=== PATIENT | female | born 1980 | race Caucasian/White ===

== ENCOUNTER 2020-05-25 14:28 | Outpatient (CLI) | payer BC, SELFPAY ==
[2020-05-25 16:02] LABS: Alanine Aminotransferase 17 U/L (4-35); Albumin Level 4.4 g/dL (3.5-5.1); Alkaline Phosphatase 58 U/L (38-126); Anion Gap 6 mmol/L (8-16); Aspartate Amino Transferase 35 U/L (14-36); Bilirubin,Total 0.4 mg/dL (0.2-1.3); Blood Urea Nitrogen 13 mg/dL (7-17); Calcium 8.5 mg/dL (8.4-10.2); Carbon Dioxide 24 mmol/L (22-30); Chloride 107 mmol/L (98-107); Estimated Glomerular Filt Rate > 60; Glucose 82 mg/dL (65-105); Potassium 4.2 mmol/L (3.4-5.0); Sodium 137 mmol/L (137-145)
[2020-05-25 16:39] LABS: Free T4 Free Thyroxine 0.84 ng/mL (0.78-2.19)
== END 2020-05-25 14:29 | disposition home or self-care (01) ==
PROVIDERS: PCP Internal Medicine; Visit Provider Nurse Practitioner
DX: Z79.899 Other long term (current) drug therapy (principal); E03.9 Hypothyroidism, unspecified
CPT/HCPCS: 36415; 80053; 84439; 84443

== ENCOUNTER 2022-12-25 10:13 | Emergency (ER) | payer OTHER, SELFPAY ==
[2022-12-25 10:30] VITALS: BP 145/84; PULSE 140; RESP 18; TEMP 37.6; O2SAT 100
--- NOTE | 2022-12-25 10:40 | ED.URI ---
HPI - URI/Sore Throat General Chief Complaint: Upper Respiratory Infection Stated Complaint: sorethroat,rt ear pain Time Seen by Provider: 12/25/22 10:40 Source: patient Mode of arrival: ambulatory Limitations: no limitations History of Present Illness HPI Narrative: 42-year-old female presents with sore throat, fatigue aches chills, fever for 3-4 days. Denies nausea vomiting diarrhea. No chest pain or shortness of breath. Reports some intermittent congestion and coughing. No known strep exposure. Is taking ibuprofen and Tylenol to treat symptoms. All systems reviewed and negative except as noted above. Related Data Home Medications Medication Instructions Recorded Confirmed Sylnda 1 tab-cap PO DAILY 12/25/22 12/25/22 Allergies Allergy/AdvReac Type Severity Reaction Status Date / Time No Known Allergies Allergy Verified 12/25/22 10:27 Review of Systems Review of Systems: CONSTITUTIONAL: reports fatigue, fever, chills, or sweats. EYES: Denies visual changes, redness, or discharge. ENT: Reports rhinorrhea, congestion, sore throat, or otalgia. CARDIOVASCULAR: Denies chest pain, palpitations, or edema. RESPIRATORY: Denies cough or dyspnea. GASTROINTESTINAL: Denies abdominal pain, nausea, vomiting, or diarrhea. GENITOURINARY: Denies dysuria or hematuria. SKIN: Denies rash or itching. MUSCULOSKELETAL: Denies back pain, joint pain, or myalgia. NEUROLOGIC: Denies headache, numbness, or weakness. PSYCHIATRIC: Denies anxiety or depression. All other systems reviewed are negative, except as documented in HPI. [facility] Past Medical History Medical History (Updated 12/25/22 @ 10:54 by Daniela Arciniega NP) Adult hypothyroidism Anxiety Family History Family History Grandparent Family history of pancreatic cancer, Onset Age: 90 Family history of malignant neoplasm of breast Diabetes mellitus Mother Family history of thyroid disease Social History Social History Smoking status: Never smoker Second hand tobacco smoke exposure: No Alcohol intake: current Alcohol use details: social Substance use: never Substance use type: does not use Comments At time of signature, agree with nursing past medical, surgical, social and family history. There is no relevant family history pertinent to the presenting complaint. Exam Narrative: GENERAL: This is a well-nourished, well-developed patient, in no apparent distress. HEAD: normocephalic, atraumatic. EYES: PERRL. Sclera clear/white. Vision is grossly intact. EARS: External ears normal, auditory canals clear and without drainage, TMs normal without perforation. Hearing grossly intact. NOSE: External nose normal with no obvious nasal discharge, nares without redness, no rhinorrhea. THROAT: Mucous membranes moist, beefy red, swollen. NECK: Neck supple, non-tender with Anterior cervical lymphadenopathy. No masses or thyromegaly. CARDIOVASCULAR: Regular rate and rhythm without murmurs, gallops, or rubs. RESPIRATORY: Clear to auscultation. Breath sounds equal bilaterally. No wheezes, rales, or rhonchi. SKIN: warm, Dry, intact with no suspicious lesions or rash, good texture and turgor. NEURO: awake, alert, and oriented to person, place and time. Course Course Level of Care: Express Care Visit Vital Signs Vital signs: Vital Signs Temperature 37.6 C 12/25/22 10:30 Pulse Rate 140 H 12/25/22 10:30 Respiratory Rate 18 12/25/22 10:30 Blood Pressure 145/84 H 12/25/22 10:30 Pulse Oximetry 100 12/25/22 10:30 Oxygen Delivery Room Air 12/25/22 10:30 Temperature 37.6 C 12/25/22 10:30 Pulse Rate 140 H 12/25/22 10:30 Respiratory Rate 18 12/25/22 10:30 Blood Pressure 145/84 H 12/25/22 10:30 Pulse Oximetry 100 12/25/22 10:30 Oxygen Delivery Room Air 12/25/22 10:30 reviewed, heart rate 118 aus
== END 2022-12-25 10:55 | disposition home or self-care (01) ==
PROVIDERS: Emergency Provider Nurse Practitioner Family; PCP Nurse Practitioner
DX: J02.9 Acute pharyngitis, unspecified (principal); E03.9 Hypothyroidism, unspecified
CPT/HCPCS: 87081; 87147; 87880; 99213; G0463

== ENCOUNTER 2024-06-03 12:12 | Outpatient (CLI) | payer OTHER, SELFPAY ==
--- NOTE | ~2024-06-03 | MM_ITS ---
EXAMINATION: MM screening [facility] BI w jordin HISTORY: Screening TECHNIQUE: Craniocaudal and mediolateral oblique 3-D tomosynthesis images were obtained and synthetic 2-D images were generated. CAD analysis was submitted and interpreted. COMPARISON: Comparison to multiple prior studies sequentially, with oldest reviewed study dated 10/2017. BREAST PARENCHYMAL COMPOSITION: Dense: The breasts are heterogeneously dense, which may obscure small masses FINDINGS: Decreased size of benign-appearing mass in the upper central aspect of the left breast, pre viously documented days a cyst by ultrasound. There is no evidence of suspicious mass, calcification, or architectural distortion to suggest malignancy in either breast. There has been no suspicious int erval change. IMPRESSION: 1. No mammographic evidence of malignancy. 2. Recommend routine screening mammography in one year. BI-RADS Category 2: Benign finding(s). Reviewed, dictated and finalized at location B.
== END 2024-06-03 12:13 ==
LOC: MICIMG 12:14
PROVIDERS: PCP Obstetrics & Gynecology; Visit Provider Obstetrics & Gynecology
DX: Z12.31 Encounter for screening mammogram for malignant neoplasm of breast (principal)
CPT/HCPCS: 77063; 77067

== ENCOUNTER 2025-02-18 08:33 | Outpatient (CLI) | payer OTHER, SELFPAY ==
--- NOTE | ~2025-02-18 | CT_ITS ---
CT soft tissue neck w con Ordering provider: Lola Stevenson APRN History: 44 years Female with . R22.1 - Localized swelling, mass and lump, neck . Comparison: None. Technique: CT soft tissues neck was performed with contrast. . Automated exposure control and iterat zehra reconstruction technique were employed. The dose-length product was 273.65 mGy-cm. 75 mL Omnipaqu e 350 was given IV. Findings: LOWER HEAD: The visualized brain parenchyma, optic globes/orbits and mastoids are normal. The visua lized paranasal sinuses are well aerated. SALIVARY GLANDS: Normal. THYROID: Normal. SUPRAHYOID DEEP SPACES: Left submandibular lymph node with irregular outline is seen measuring 1.1x 1 .3x 1.2 cm. Lymph nodes in the parapharyngeal spaces are also noted measuring 1 cm in the right side and 1 cm on the left side. CAROTID ARTERIES: Normal. JUGULAR VEINS: Normal. TONSILS: Normal. ORAL CAVITY: normal as visualized. PHARYNX, LARYNX AND TRACHEA: Patent and normal. No prevertebral soft tissue swelling. SUPERFICIAL SOFT TISSUES: Normal. No lymphadenopathy or neck mass. THORACIC INLET/VISUALIZED UPPER CHEST: Normal. SKELETAL: Age appropriate degenerative changes. IMPRESSION: 1. Left submandibular lymph node with irregular outline suggestive of inflammation. Follow-up advise d. Slightly prominent parapharyngeal lymph nodes. Otherwise Normal CT neck. Reviewed, dictated and finalized at location A. IMPRESSION: 1. Left submandibular lymph node with irregular outline suggestive of inflamma tion. Follow-up advised. Slightly prominent parapharyngeal lymph nodes. Otherwi se Normal CT neck.
--- OUTSIDE RECORDS SUMMARY | 2025-02-18 08:42 | XMS_ITS | Clinical Summary ---
Author Organization [facility] [address] - [address] [facility] [address] [place] [address] Phone Care Team Providers Care Chlorine Cells Operator Name Role Phone Solomon Miranda MD Primary Care Provider [phone] Allergies No known active allergies Medications Levothyroxine 25 mcg Oral Cap Take 25 mcg by mouth daily. Active VITS W-CA,FE,FA,<1MG , ( VITAMIN ORAL) Take 1 Tab by mouth daily. Active CALCIUM CARBONATE (TUMS ORAL) PRN heartburn Active Family History Medical History Relation Name Comments Other Father multiple head t rauma Cancer Maternal Grandfather Diabetes Maternal Grandfather Breast Cancer Maternal Grandmother Cancer Maternal Grandmother Thyroid Disease Mother Hypertension Paternal Grandmother Relation Name Status Comments Father Maternal Grandfather Maternal Grandmother Mother Paternal Grandmother Social History Tobacco Use Types Packs/Day Years Used Date Smoking Tobacco: Never Alcohol Use Standard Drinks/Week Comments No 0 (1 standard drink = 0.6 oz pur e alcohol) Comments No Sex and Gender Information Value Date Recorded Sex Assigned at Not on file Legal Sex Female 6:11 AM RN PAIN MANAGEMENT Gender Identity Not on file Sexual Orientation Not on file Occupation Industry Job Start Date Job End Date Not on file Not on file Not on file Not on file Plan of Treatment Health Maintenance Due Date Last Done Comments DTAP/TDAP/TD VACCINES (1 - Tdap) 2001 HEPATITIS B VACCINES (1 of 3 - 19+ 3-dose series) 2001 HPV/Cotest (21-29) 2003 CERVICAL CANCER SCREENING 2012 HPV/Cotest (30-65) 2012 PAP SMEAR 2012 BREAST CANCER SCREENING 01/06/2024 01/05/2023 INFLUENZA VACCINE (#1) 2024 HPV VACCINES Aged Out No longer eligi ble based on patient's age to complete this topic Procedures Procedure Name Priority Date/Time Associated Diagnosis Comments MAMMO 3D LISSY SCREEN BILAT W OR WO CAD Routine 01/05/2023 11:49 AM CDT Visit for screening mammogram from Last 3 Months or Most Recently Relevant to Health Maintenance Results * MAMMO SCRN BILAT 3D LISSY W OR WO CAD (01/05/2023 11:49 AM CDT) Anatomical Region Laterality Modality Breast Bilateral Mammography 01/05/2023 11:5 0 AM CDT Impressions 01/17/2023 11:07 AM CDT : BI-RADS Category 2, benign mammogram. Recommend yearly bilateral screening mammogram. Narrative 01/17/2023 11:07 AM CDT EXAM: MAMMO SCRN BILAT 3D LISSY W OR WO CAD DATE: 01/05/2023 CLINICAL HISTORY: Screening in an asymptomatic patient with a family history of breast cancer TECHNIQUE: Bilateral full field digital mammography and digital tomosynthesis were performed in the CC and MLO projections. Comparison was made to prior bilateral mammograms from May 14, 2018 and May 09, 2010, a diagnostic left breast mammogram performed December 05, 2018 and left breast ultrasounds from December 05, 2018 and May 14, 2018. CAD was utilized. FINDINGS: The breast parenchyma is heterogenously dense, which limits evaluation for masses. The parenchymal pattern is unchanged compared to the prior exams. A few scattered calcifications are benign in appearance. The ovoid dense mass with lobular margins in the mid upper central left breast is unchanged. There is no new asymmetry or mass, area of architectural distortion or suspicious microcalcification. Alfredo Gonzalez MD MAMMO ORDERABLES Final Result from Last 3 Months or Most Recently Relevant to Health Maintenance Insurance BCBS BLUE ACCESS/TRUE BLUE PPO [employer] PPO Care Teams Chlorine Cells Operator Relationship Specialty Start Date End Date Solomon Miranda MD [address] [facility] [address] [place] [address] PCP - General Internal Medicine 06/10/12
--- OUTSIDE RECORDS SUMMARY | 2025-02-18 08:42 | XMS_ITS | Clinical Summary ---
Author Organization [facility] Address [address] [place] [id number] Care Team Providers Care National Recruiter Name Role Phone Unavailable Primary Care Provider Unavailabl e Social History Tobacco Use Types Packs/Day Years Used Date Smoking Tobacco: Never Assessed Comments Unknown Sex and Gender Information Value Date Recorded Sex Assigned at Not on file Legal Sex Female 5:14 PM CDT Gender Identity Not on file Sexual Orientation Not on file Plan of Treatment Health Maintenance Due Date Last Done Comments Cervical Cancer Screening Pa p Smear (Age 30 to 64) Every 3 Years 1982 Annual Physical 1985 Hepatitis C 2000 DTaP, Tdap and Td Vaccines ( 1 - Tdap) 2001 Hepatitis B Vaccines (1 of 3 - 19+ 3-dose series) 2001 Cervical Cancer Screening Pa p with HPV Testing (Age 30 to 64) Every 5 Years 2012 Cervical Cancer Screening with HPV 2012 Mammogram Screening 2022 COVID-19 Vaccine (2023-2 5 season) 2024 HPV Vaccines Aged Out No longer eligi ble based on patient's age to complete this topic Meningococcal B Vaccine Aged Out No l onger eligible based on patient's age to complete this topic Meningococcal Vaccine Aged Out No sam gadiel eligible based on patient's age to complete this topic Pneumococcal Vaccine: Pediat rics (0 to 5 Years) and At-Risk Patients (6 to 49 Years) Aged Out No longer eligible b ased on patient's age to complete this topic RSV Immunizations Under 20 Months Aged Out No longer eligible based on patient's age to complete this topic
--- OUTSIDE RECORDS SUMMARY | 2025-02-18 08:42 | XMS_ITS | Continuity of Care Document ---
Author Organization [facility] Address [address] [place] [address] Phone Care Team Providers Care Laborer Tanbark Name Role Phone Unavailable Unavailable Unavailable Advance Directives Directive Yes / No Effective Date File Name No Information Encounters Encounter Description Practice Location Reason(s) For Visit Diagnoses Date Provider Providers Copied on Encounter [facility], [address] [facility], [place], [place], [id number], [place] tel:[phone] [facility] No Information 2 No Information Referring Provider: ANA HOU, [address] [place] [address],[place], [address]. tel:[phone] Family History Family Member Type Diagnosis Age At Onset No Information Payers Payer name Insurance type Covered alliance party ID Authoromayraa drew(s) [facility] [id number] [id number] Social History Type Description Quantity Date Captured Comments Sex Female Smoking Status No Information Chief Complaint And Reason For Visit No Information History Of Present Illness Encounter Date Complaint History Of Prese nt Illness No Information Instructions Date Instruction Additional Infor mation No Information Assessments Type Assessment Date No Information
== END 2025-02-18 08:34 | disposition home or self-care (01) ==
PROVIDERS: PCP Nurse Practitioner Family; Visit Provider Nurse Practitioner Family
DX: R22.1 Localized swelling, mass and lump, neck (principal)
CPT/HCPCS: 70491; Q9967

== ENCOUNTER 2025-06-07 11:28 | Outpatient (CLI) | payer OTHER, SELFPAY ==
--- NOTE | ~2025-06-07 | MM_ITS ---
EXAMINATION: MM screening [facility] BI w jordin HISTORY: Screening TECHNIQUE: Craniocaudal and mediolateral oblique 3-D tomosynthesis images were obtained and synthetic 2-D images were generated. CAD analysis was submitted and interpreted. COMPARISON: Comparison to multiple prior studies sequentially, with oldest reviewed study dated 05/09/2010. BREAST PARENCHYMAL COMPOSITION: The breasts are heterogeneously dense, which may obscure small masses. FINDINGS: There is no evidence of suspicious mass, calcification, or architectural distortion to suggest malignancy in either breast. IMPRESSION: 1. No mammographic evidence of malignancy. 2. Recommend routine screening mammography in one year. BI-RADS Category 1: Negative Reviewed, dictated and finalized at location B.
== END 2025-06-07 11:29 | disposition home or self-care (01) ==
LOC: MICIMG 11:30
PROVIDERS: PCP Nurse Practitioner Obstetrics & Gynecology; Visit Provider Nurse Practitioner Obstetrics & Gynecology
DX: Z12.31 Encounter for screening mammogram for malignant neoplasm of breast (principal)
CPT/HCPCS: 77063; 77067